=== PATIENT | male | born 1970 | race Caucasian/White ===

== ENCOUNTER 2019-05-05 14:56 | Emergency (ER) | payer MEDICARE, MEDICAID, SELFPAY ==
--- NOTE | ~2019-05-05 | XR_ITS ---
EXAMINATION: XR lumbar spine 2-3V DATE: 05/05/2019 16:41 INDICATION: Low back pain. TECHNIQUE: 3 views of lumbar spine were obtained. COMPARISON: Lumbar spine radiographs 12/18/2003 FINDINGS: There is 3 degrees dextrocurvature of thoracolumbar spine. Vertebral body heights are dilma l. Intervertebral disc heights are normal. There is moderate to severe facet joint osteoarthritis in lower lumbar spine. There is an old healed fracture deformity of the sacrum. IMPRESSION: 1. Mild lumbar spondylosis. Reviewed, dictated and finalized at location A. MOBILE SALES REPRESENTATIVE IMPRESSION: 1. Mild lumbar spondylosis.
--- NOTE | ~2019-05-05 | XR_ITS ---
EXAMINATION: XR hip LT 2V w AP pelvis DATE: 05/05/2019 16:40 INDICATION: Left lower limb pain. TECHNIQUE: An anteroposterior view pelvis and 2 views of left hip were obtained. COMPARISON: None. FINDINGS: There are old healed fracture deformities of the bilateral superior and inferior pubic rami and the sacrum. No acute fracture. There is an old tract in proximal left femur. There is moderate o steoarthritis of the hips. IMPRESSION: 1. Moderate osteoarthritis of the hips. Reviewed, dictated and finalized at location A. ORK SYSTEMS ANALYST
[2019-05-05 15:12] VITALS: BP 122/78; PULSE 70; RESP 20; TEMP 37.2; O2SAT 99
--- NOTE | 2019-05-05 15:40 | PC.NURSE ---
Patient able to ambulate in shafer with no assistance. Denies any pain or difficulty. CHEIKH Boucher notified.
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
[2019-05-05 17:43] VITALS: BP 119/77; PULSE 64; RESP 18; O2SAT 97
== END 2019-05-05 17:44 | disposition home or self-care (01) ==
PROVIDERS: Emergency Provider Emergency Medicine; PCP Family Medicine
DX: M47.816 Spondylosis without myelopathy or radiculopathy, lumbar region (principal); M16.0 Bilateral primary osteoarthritis of hip; F17.200 Nicotine dependence, unspecified, uncomplicated
CPT/HCPCS: 72100; 73502; 73521; 99284

== ENCOUNTER 2019-05-18 01:43 | Day surgery (SDC) | payer MEDICARE, MEDICAID, SELFPAY ==
[2019-05-12 13:03] VITALS: BMI 26.9
[2019-05-18 09:25] VITALS: BP 119/74; PULSE 62; RESP 18; TEMP 36.4; O2SAT 99
[2019-05-18] MEDS: LACTATED RINGERS 1,000 ML 150 ML IV CONT (09:28)
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
--- NOTE | 2019-05-18 10:07 | P.PNAN_ITS ---
Anes - Initial Pre Proc Eval Procedure: Operation Date: 05/18/19 10:00 Proposed Procedures p Esophagogastroduodenoscopy - Tin Briggs MD Date/Time: 05/18/19 10:07 Surgeon: Tin Briggs MD Pre Op Diagnosis: dysphagia Patient Data Age: 48 Gender: M Height: 5 ft 7 in Weight: 74.9 kg Last Vital Signs Temp 36.4 C 05/18/19 09:25 Pulse 62 05/18/19 09:25 Resp 18 05/18/19 09:25 BP 119/74 05/18/19 09:25 Pulse Ox 99 05/18/19 09:25 Allergies Allergy/AdvReac Type Severity Reaction Status Date / Time iodine Allergy Severe Anaphylaxis Verified 05/12/19 12:50 Home Medications Medication Instructions Recorded Confirmed Type bupropion HCl 300 mg PO DAILY 05/12/19 05/12/19 History oxycodone 15 mg PO Q4-6H PRN 05/12/19 05/12/19 History Patient hx anesthesia problems: none Family hx anesthesia problems: none [facility] Past Medical History Medical History Multiple pelvic fractures Social History Social History Smoking status: Current every day smoker Alcohol intake: current Substance use type: marijuana Additional occupation/education comments: disability Anes - Eval Final PreProcedure Day of Procedure 05/18/19 10:07 Patient weight: normal Heart: regular rate and rhythm Lungs: clear to auscultation Airway: Mallampati scale class II Neurological: alert and oriented Last oral intake: >/= 8 hours ASA classification: III Emergent: no Anesthetic plan: proceed Anesthesia type and monitoring: general GIVS and standard monitoring Informed Consent: The patient's anesthetic plan and its attendant risks and benefits were discussed with the patient/family/POA. Questions were solicited and answers provided to the satisfaction of the patient/family/POA.
[2019-05-18 10:28] VITALS: BP 107/59; PULSE 60; RESP 18; O2SAT 100
[2019-05-18 10:38] VITALS: BP 117/72; PULSE 55; RESP 20; O2SAT 99
[2019-05-18 10:53] VITALS: BP 105/63; PULSE 59; RESP 18; O2SAT 100
== END 2019-05-18 11:21 | disposition home or self-care (01) ==
PROVIDERS: PCP Family Medicine; Visit Provider Internal Medicine Gastroenterology
PROC: 0DJ08ZZ Inspection of Upper Intestinal Tract, Via Natural or Artificial Opening Endoscopic (ICD-10-PCS; CPT 43235; principal; 2019-05-18 10:00)
DX: K22.2 Esophageal obstruction (principal); K21.0 Gastro-esophageal reflux disease with esophagitis; F17.210 Nicotine dependence, cigarettes, uncomplicated
CPT/HCPCS: 43235; 43450; J2704; J7120

== ENCOUNTER 2020-07-16 11:37 | Outpatient (CLI) | payer MEDICARE, MEDICAID, SELFPAY | END 2020-07-16 11:38 | disposition home or self-care (01) | LOC: ANHCOVIDVC 11:37 | PROVIDERS: PCP Family Medicine | DX: Z23 Encounter for immunization (principal) | CPT/HCPCS: 0001A; 91300 ==

== ENCOUNTER 2020-08-06 11:39 | Outpatient (CLI) | payer MEDICARE, MEDICAID, SELFPAY | END 2020-08-06 11:40 | disposition home or self-care (01) | LOC: ANHCOVIDVC 11:39 | PROVIDERS: PCP Family Medicine | DX: Z23 Encounter for immunization (principal) | CPT/HCPCS: 0002A; 91300 ==

== ENCOUNTER 2021-02-11 11:33 | Outpatient (CLI) | payer MEDICARE, MEDICAID, SELFPAY ==
--- NOTE | ~2021-02-11 | XR_ITS ---
EXAMINATION: XR scanogram EXAM DATE: 02/11/2021 12:34 INDICATION: Unilateral primary osteoarthritis left hip. Scanogram. TECHNIQUE: Frontal projections of the lower extremities and pelvis, and a composite image of these, scanogram. Comparison is made to prior examination from 05/05/2019. FINDINGS: At the ankles the right ankle is about 3 mm taller than the left. At the knees the right tibial plateau is about 10 mm taller than the left. At the acetabula, the right is about 6 mm taller than the left There is 3 degrees of pelvic tilt, with with the right iliac crest about 8 mm taller than the left. There is some deformity, distortion of the shape of the left hemipelvis, could be sequela from prior fractures which have healed, or congenital. There is moderate left hip primary osteoarthritis, mild to moderate of the right hip. There appears t o be a somewhat shallow right acetabulum compared to the left side, could be from mild congenital hip dysplasia. IMPRESSION: 1. Leg length discrepancy with right taller than left. 2. Left hemipelvis deformity could be from old fractures or congenital appearance. 3. 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 Reviewed, dictated and finalized at location A. URY MACHINE OPERATOR IMPRESSION: 1. Leg length discrepancy with right taller than left. 2. Left hemipelvis deformity could be from old fractures or congenital appeara nce. 3. 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
== END 2021-02-11 11:34 | disposition home or self-care (01) ==
LOC: ANHIMG 11:37
PROVIDERS: PCP Family Medicine; Visit Provider Orthopaedic Surgery
DX: M16.12 Unilateral primary osteoarthritis, left hip (principal); Q65.89 Other specified congenital deformities of hip
CPT/HCPCS: 77073

== ENCOUNTER 2022-05-22 11:17 | Outpatient (CLI) | payer MEDICARE, MEDICAID, SELFPAY ==
[2022-05-22 12:09] LABS: Basophils Absolute Auto 0.1 K/mm3 (0.0-0.1); Basophils Percent Auto 1.1 % (0.2-1.2); Eosinophils Absolute Auto 0.5 K/mm3 (0-0.3); Eosinophils Percent Auto 7.5 % (0-4.4); Hematocrit 41.8 % (42.0-52.0); Hemoglobin 14.7 g/dL (14.0-18.0); Immature Granulocyte Absolute 0.03 K/mm3 (0.00-0.031); Immature Granulocyte Percent A 0.5 % (0-0.5); Lymphocytes Absolute Auto 1.98 K/mm3 (0.9-3.2); Lymphocytes Percent Auto 32.1 % (18.3-44.2); Mean Corpuscular HGB Conc 35.2 g/dl (32-36); Mean Corpuscular Hemoglobin 30.9 pg (26-34); Mean Corpuscular Volume 87.8 fl (80-100); Mean Platelet Volume 8.4 fl (7.4-10.4); Monocytes Absolute Auto 0.4 K/mm3 (0.1-0.6); Monocytes Percent Auto 6.8 % (2.6-8.5); Neutrophils Absolute Auto 3.2 K/mm3 (1.3-6.7); Platelet Count Result 280 k/mm3 (150-375); Red Blood Count 4.76 M/mm3 (4.6-6.20); Red Cell Distribution Width 12.7 % (11.5-14.5); White Blood Count 6.2 K/mm3 (4.5-10.0)
[2022-05-22 12:28] LABS: Immunoglobulin A 189 mg/dL (70-400); Immunoglobulin G 939 mg/dL (700-1600); Immunoglobulin M 136 mg/dL (40-230)
[2022-05-26 17:08] LABS: Immunoglobulin G, Serum 951 mg/dL (600-1640); Immunoglobulin G1 552 mg/dL (382-929); Immunoglobulin G2 248 mg/dL (241-700); Immunoglobulin G3 82 mg/dL (22-178); Immunoglobulin G4 8.5 mg/dL (4.0-86.0)
[2022-05-27 02:18] LABS: Immunoglobulin E 346 kU/L (<=114)
[2022-05-27 17:37] LABS: Aspergillus fumigatus (m3) IgG 10.1 mcg/mL (<2.0)
== END 2022-05-22 11:18 | disposition home or self-care (01) ==
PROVIDERS: PCP Family Medicine; Visit Provider Allergy & Immunology
DX: D84.9 Immunodeficiency, unspecified (principal)
CPT/HCPCS: 36415; 82784; 82785; 82787; 85025; 86001; 86648; 86774

== ENCOUNTER 2024-03-21 11:31 | Outpatient (CLI) | payer MEDICARE, MEDICAID, SELFPAY ==
[2024-03-22 15:33] LABS: SS-A <1.0 NEG AI (<1.0 NEG); SS-B <1.0 NEG AI (<1.0 NEG)
== END 2024-03-21 11:32 | disposition home or self-care (01) ==
PROVIDERS: PCP Physician Assistant; Visit Provider Otolaryngology
DX: M35.00 Sjogren syndrome, unspecified (principal)
CPT/HCPCS: 36415; 86235

== ENCOUNTER 2024-04-04 13:19 | Outpatient (CLI) | payer MEDICARE, MEDICAID, SELFPAY ==
--- NOTE | ~2024-04-04 | XR_ITS ---
XR hand LT min 3V Ordering provider: Davon Tarango MD History: . M79.642 - Pain in left hand . Comparison: None. FINDINGS: BONES: No acute fracture or dislocation. JOINT SPACES: Narrowing of the distal interphalangeal joints. SOFT TISSUES: Unremarkable. IMPRESSION: No acute osseous abnormality left hand. Polyarticular osteoarthritic changes. Reviewed, dictated and finalized at location A. ING PRINTER
== END 2024-04-04 13:20 | disposition home or self-care (01) ==
PROVIDERS: PCP Physician Assistant; Visit Provider Plastic Surgery
DX: M19.042 Primary osteoarthritis, left hand (principal)
CPT/HCPCS: 73130

== ENCOUNTER 2024-06-03 15:06 | Outpatient (CLI) | payer MEDICARE, MEDICAID, SELFPAY ==
[2024-06-03 15:23] LABS: Basophils Absolute Auto 0.1 K/mm3 (0.0-0.1); Basophils Percent Auto 0.8 % (0.2-1.2); Eosinophils Absolute Auto 0.6 K/mm3 (0-0.3); Eosinophils Percent Auto 9.7 % (0-4.4); Hematocrit 42.7 % (42.0-52.0); Hemoglobin 15.1 g/dL (14.0-18.0); Immature Granulocyte Absolute 0.02 K/mm3 (0.00-0.031); Immature Granulocyte Percent A 0.3 % (0-0.5); Lymphocytes Absolute Auto 1.76 K/mm3 (0.9-3.2); Lymphocytes Percent Auto 29.9 % (18.3-44.2); Mean Corpuscular HGB Conc 35.4 g/dl (32-36); Mean Corpuscular Hemoglobin 31.7 pg (26-34); Mean Corpuscular Volume 89.5 fl (80-100); Mean Platelet Volume 8.6 fl (7.4-10.4); Monocytes Absolute Auto 0.5 K/mm3 (0.1-0.6); Monocytes Percent Auto 8.5 % (2.6-8.5); Neutrophils Percent Auto 50.8 % (45.5-73.1); Platelet Count Result 254 k/mm3 (150-375); Red Blood Count 4.77 M/mm3 (4.6-6.20); Red Cell Distribution Width 12.3 % (11.5-14.5); White Blood Count 5.9 K/mm3 (4.5-10.0)
[2024-06-03 16:30] LABS: Alanine Aminotransferase 31 U/L (6-50); Albumin Level 4.5 g/dL (3.5-5.1); Alkaline Phosphatase 54 U/L (38-126); Anion Gap 9 mmol/L (4-12); Aspartate Amino Transferase 32 U/L (17-59); Bilirubin,Total 0.6 mg/dL (0.2-1.3); Blood Urea Nitrogen 14 mg/dL (9-20); Calcium 9.3 mg/dL (8.4-10.2); Carbon Dioxide 27 mmol/L (22-30); Chloride 104 mmol/L (98-107); Estimated Glomerular Filt Rate > 60; Glucose 105 mg/dL (65-110); Lactate Dehydrogenase 197 U/L (120-246); Potassium 4.1 mmol/L (3.4-5.0); Sodium 140 mmol/L (137-145)
[2024-06-06 15:53] LABS: EBV Nuclear Ab Antibody >600.00 U/mL; EBV Virus Capsid Ag IgM Ab <36.00 U/mL
== END 2024-06-03 15:07 | disposition home or self-care (01) ==
LOC: ANHLAB 15:07
PROVIDERS: PCP Physician Assistant; Visit Provider Internal Medicine Hematology & Oncology
DX: R59.1 Generalized enlarged lymph nodes (principal)
CPT/HCPCS: 36415; 80053; 83615; 85025; 86664; 86665; 88184

== ENCOUNTER 2025-03-23 14:26 | Outpatient (CLI) | payer MEDICARE, MEDICAID, SELFPAY ==
--- NOTE | ~2025-03-23 | CT_ITS ---
CT lung screening INDICATION: Nicotine dependence COMPARISON: None. TECHNIQUE: CT examination of the entire thorax without contrast was performed using low dose technique. Thin section axial, sagittal and coronal images were included to increase sensitivity for small lung nodules. FINDINGS: PULMONARY NODULES: No suspicious noncalcified pulmonary nodule seen. OTHER PULMONARY FINDINGS: No significant nonnodular pleural or parenchymal abnormality is noted. No emphysematous changes are present. No pathologically enlarged lymph nodes are present. Normal heart size. Minutes limited nondedicated CT there are no significant coronary artery calcifications. UPPER ABDOMEN AND PERIPHERAL SOFT TISSUE: Limited views of the upper abdomen and peripheral soft tissue demonstrated no abnormalities. Cholelithiasis is noted. There are no CT evidence of acute cholecystitis. OSSEOUS STRUCTURES: Bone window shows no aggressive blastic or lytic lesions. IMPRESSION: 1. Lung-RADS category 1: No nodules or definitely benign nodules. Recommendations: 1 or 2: Annual screening with low-dose CT in 12 months. 2. No emphysematous changes are present. All CT scans at this facility are performed using low dose modulation techniques as appropriate to perform exam including the following: automated exposure control; use of iterative reconstruction technique; adjustment of the mA and/or kV according to patient size (this includes techniques or standardized protocols for targeted exams where dose is matched to indication/reason for exam). Reviewed, dictated and finalized at location S. NT SUCCESS SPECIALIST IMPRESSION: 1. Lung-RADS category 1: No nodules or definitely benign nodules. Recommendations: 1 or 2: Annual screening with low-dose CT in 12 months. 2. No emphysematous changes are present. All CT scans at this facility are performed using low dose modulation techniqu es as appropriate to perform exam including the following: automated exposure c ontrol; use of iterative reconstruction technique; adjustment of the mA and/or kV according to patient size (this includes techniques or standardized protocol s for targeted exams where dose is matched to indication/reason for exam).
== END 2025-03-23 14:27 | disposition home or self-care (01) ==
LOC: MICIMG 14:27
PROVIDERS: PCP Internal Medicine; Visit Provider Internal Medicine
DX: F17.211 Nicotine dependence, cigarettes, in remission (principal)
CPT/HCPCS: 71271